=== PATIENT | male | born 1950 | race Caucasian/White ===

== ENCOUNTER → 2016-10-28 | Day surgery (SDC) | payer MEDICARE, BC ==
[~2016-10-28] MED LIST: ALLO100T PO; ASPI325T PO; ATOR40TA16 PO; BUPIVACAINE HCL PF 0.5% 30 ML VIAL ONE; CALTTAB5 PO; CYCL1TAB29 PO; FIBE625T PO; LEVO-154 PO; LISI10TA3 PO; LYRI50CA PO; MAGN400T2 PO; METO50TA PO; MULT-135 PO; PROPOFOL 200 MG/20 ML AMP IV ONE; TRAZ50TA12 PO; TRIAMCINOLONE ACETONIDE 40 MG/ML VIAL I-ARTICULR ONE; VENL100T PO; XANA1TAB2 PO; methylPREDNISolone ACETATE 40 MG/ML VIAL I-ARTICULR ONE
--- NOTE | 2016-10-31 07:16 | M6 ---
cc: QUINCY BRADLEY M.D. DATE 10/28/2016 DATE OF 1950 PROCEDURE Fluoroscopically guided injection bilateral sacroiliac joints. History and physical was completed and signed. Consent was signed. Procedure site was marked. Medications were listed and reconciled. Pain score was recorded. Allergies were noted. Time out was taken. Fluoroscopy time was recorded where applicable. Sedation was administered or directed by Dr. Bradley. The patient was given oxygen. The patient was monitored by a registered nurse. Total procedure time was greater than 15 minutes. PROCEDURE NOTE IV was started. Blood pressure cuff, pulse oximeter and EKG were applied. The patient was placed in the prone position on a Martínez table, sedated with small amounts of propofol titrated to effect. Vital signs were monitored and remained stable throughout the procedure. The sacral area was prepped with alcohol and 10% Betadine solution and draped with sterile drapes. Fluoroscopy was used shooting from medial to lateral to clearly visualize the posterior joint line of the bilateral sacroiliac joints. Separate sterile 5-inch, 22-gauge spinal needles were advanced into these joints under fluoroscopic guidance. There was negative aspiration for blood or any other type of fluid and at each location the patient was given 2 mL of 0.5% Marcaine, 20 mg of Depo-Medrol and 20 mg of Kenalog. Following the procedure the patient was taken to the recovery room with stable vital signs, neurologically intact. W. MD JESSI Rodas/IVETTE /9:42 AM /7:13 AM
== END | disposition home or self-care (01) ==
LOC: PHSDC 07:13
PROVIDERS: ATTEND Pain Medicine Interventional Pain Medicine
DX: M54.5 Low back pain (principal)
CPT/HCPCS: 99152; G0260; J1030; J3301; 27096